=== PATIENT | female | born 1975 | race Caucasian/White ===

== ENCOUNTER 2018-09-07 07:48 | Outpatient (CLI) | payer OTHER | END 2018-09-07 07:53 | disposition home or self-care (01) | LOC: SONOGRAMA 07:48 | DX: E04.1 Nontoxic single thyroid nodule (principal) ==

== ENCOUNTER → 2019-03-31 | Outpatient (CLI) | payer OTHER | END | disposition home or self-care (01) | LOC: SONOGRAMA 09:16 | DX: E04.1 Nontoxic single thyroid nodule (principal) ==